=== PATIENT | female | born 1975 | race Caucasian/White ===

== ENCOUNTER 2017-04-10 08:23 | Emergency (ER) | payer OTHER ==
[~2017-04-10] VITALS: Ht 167.6 cm; Wt 156.1 kg
[2017-04-10 08:32] VITALS: BP 158/91
[2017-04-10] MEDS ORDERED: HYDROcodone/APAP 10/325 1 TAB TABLET PO ONE (09:00)
--- NOTE | 2017-04-10 09:09 | RAD ---
Portable left elbow, 3 views, 04/10/2017: History: Elbow pain, injury There are calcific densities along the lateral aspect of the elbow joint. These are well-defined and probably represent tendinous calcifications and/or old avulsion fracture fragments. There is mild spurring at the elbow joint. No acute fracture is identified. There is mild bowing of the anterior fat pad suggesting a small joint effusion. A displaced posterior fat pad is not clearly seen. IMPRESSION: 1. Small soft tissue calcifications laterally are probably due to old trauma. 2. Mild degenerative change. 3. No acute bony abnormality is detected. 4. Probable small joint effusion.
--- NOTE | 2017-04-10 10:32 | ED.ADGEN ---
Past Medical History Past Medical History: Diabetes-Type II, Other Additional Past Medical Histor: obesity Past Surgical History: Other Additional Past Surgical Histo: bilat epicondrilitis Alcohol Use: Occasionally Drug Use: None Adult General Chief Complaint Chief Complaint: ELBOW PROBLEM [facility] HPI Patient is a 41 year old male who presents with left elbow injury. Patient banged the back part of her posterior elbow this morning. Patient reports pain, tingling in left arm and wrist and distribution of the ulnar nerve. He is not motor weakness, does have pain on range of motion with pronation and supination. There is no obvious swelling, deformity. Pain is present over the lateral condyle. She has had a left ulnar release surgery. [place]. Review of Systems Review of Systems ROS as per HPI. Current Medications Current Medications Current Medications Medications (Trade) Dose Ordered Sig/Tabby Start Time Stop Time Status Last Admin Dose Admin Acetaminophen/ Hydrocodone Bitart (Lortab 10/325) 1 tab 1X ONCE 04/10/17 09:00 04/10/17 09:03 DC 04/10/17 09:19 1 TAB Allergies Allergies Allergies Coded Allergies Type Severity Reaction Last Updated Verified Sulfa (Sulfonamide Antibiotics) Allergy Intermediate 04/10/17 Yes chocolate flavor Allergy Intermediate 04/10/17 Yes egg Allergy Intermediate 04/10/17 Yes lactase Allergy Intermediate 04/10/17 Yes nut - unspecified Allergy Intermediate 04/10/17 Yes morphine Adverse Reaction Intermediate NAUSEA/VOMITING 04/10/17 Yes Physical Exam Physical Exam Constitutional: Well developed, well nourished, no acute distress, non-toxic appearance. Extremities: Left elbow, no deformity, soft tissue tenderness over left epicondyle. Left elbow pain with flexion extension supination and pronation. Neurologic: Alert and oriented X 3, left upper extremity, tingling over left ulnar sensory distribution of forearm and hand. No motor deficits. Psychologic: Affect normal, judgement normal, mood normal. Current Patient Data Vital Signs Vital Signs Date Time Temp Pulse Resp B/P (MAP) Pulse Ox O2 Delivery O2 Flow Rate FiO2 04/10/17 09:19 18 96 Room Air 04/10/17 08:32 98.0 83 98.0 EKG EKG [] Radiology/Procedures Radiology/Procedures [Left elbow: Small joint effusion, no other acute injury per radiology report.] Course & Med Decision Making Course & Med Decision Making Pertinent Labs and Imaging studies reviewed. (See chart for details) [Patient placed in sling and splint with recommendations to follow-up with home orthopedic surgeon. Prescription pain medication provided.] Neeraj Disclaimer Neeraj Disclaimer This electronic medical record was generated, in whole or in part, using a voice recognition dictation system. CORINNE BECKMAN DO Apr 10, 2017 10:32
== END 2017-04-10 10:20 | disposition home or self-care (01) ==
LOC: ER 08:23
DX: S59.902A Unspecified injury of left elbow, initial encounter (principal); R20.2 Paresthesia of skin; E11.9 Type 2 diabetes mellitus without complications; Z88.2 Allergy status to sulfonamides; Z88.6 Allergy status to analgesic agent; Z91.012 Allergy to eggs; Z91.011 Allergy to milk products; Z91.018 Allergy to other foods; X58.XXXA Exposure to other specified factors, initial encounter; Y93.89 Activity, other specified; Y99.8 Other external cause status; Y92.89 Other specified places as the place of occurrence of the external cause
CPT/HCPCS: 29105; 73080; 99284-25